=== PATIENT | female | born 1970 | race Caucasian/White ===

== ENCOUNTER → 2017-02-14 | Outpatient (CLI) | payer OTHER ==
[~2017-02-14] MED LIST: CYMBALTA30 MG PO; GLUCOSAMINE &1 EACH PO; LISINOPRIL-HCT1 EAC1 PO; ZOCOR40 MG PO
== END | disposition disaster alternative care site (69) ==
LOC: GBCOE 14:50
DX: Z12.31 Encounter for screening mammogram for malignant neoplasm of breast (principal)
CPT/HCPCS: G0202